=== PATIENT | male | born 1990 | race Caucasian/White ===

== ENCOUNTER 2018-03-30 02:55 | Inpatient (IN) | payer BC, OTHER ==
--- NOTE | 2018-03-30 04:00 | PDOC ---
History of Present Illness - General Chief Complaint: Chest Pain Stated Complaint: CHEST AND ABDOMINAL PAIN Time Seen by Provider: 03/30/18 03:53 History Source: Patient - History of Present Illness Initial Comments: 03/30/18 05:45 27 year old male with RUQ pain since 10 pm shortly after eating pork chop for dinner. patient that for the past 4 month patient has been patient following a high fatty Keto diet. denies N, V, diarrhea. 03/30/18 06:22 Past History - Past Medical History Allergies/Adverse Reactions: Allergies Allergy/AdvReac Type Severity Reaction Status Date / Time No Known Allergies Allergy Verified 03/30/18 04:29 Home Medications: Ambulatory Orders NK [No Known Home Medication] 03/30/18 Review of Systems - Review of Systems Able to Perform ROS?: Yes Is the patient limited Kazakh proficient: No Constitutional: Yes: Symptoms Reported ABD/GI: Yes: Abdominal cramping. No: Symptoms Reported, See HPI, Abdominal Distended, Abd. Pain w/ defecation, Blood Streaked Bowels, Constipated, Diarrhea , Difficulty Swallowing, Nausea, Poor Appetite, Poor Fluid Intake, Rectal Bleeding, Vomiting, Indigestion, Tarry Stools, Other : No: Symptoms Reported, See HPI, Burning, Dysuria, Discharge, Frequency, Flank Pain, Hematuria, Incontinence, Pain, Urgency, Testicular Mass, Testicular Swelling, Lesions, Testicular Pain, Other Musculoskeletal: No: Symptoms Reported, See HPI, Back Pain, Gout, Joint Pain, Joint Swelling, Muscle Pain, Muscle Weakness, Neck Pain, Joint Stiffness, Other Integumentary: No: Symptoms Reported, See HPI, Bruising, Change in Color, Change in Hair/Nails, Dryness, Erythema, Flushing, Lesions, Lumps, Pallor, Pruritus, Rash, Sweating, Other *Physical Exam - Vital Signs Last Vital Signs Temp Pulse Resp BP Pulse Ox 97.7 F 68 17 128/74 98 03/30/18 04:16 03/30/18 06:16 03/30/18 06:16 03/30/18 06:16 03/30/18 04:16 - Physical Exam General Appearance: Yes: Appropriately Dressed Gastrointestinal/Abdominal: positive: Normal Bowel Sounds, Tender (RUQ/ epigastric), Soft Musculoskeletal: positive: Normal Inspection Extremity: positive: Normal Capillary Refill, Normal Inspection, Normal Range of Motion Integumentary: positive: Normal Color, Dry, Warm Neurologic: positive: Fully Oriented, Alert, Normal Mood/Affect ED Treatment Course - LABORATORY CBC & Chemistry Diagram: 03/30/18 04:23 03/30/18 04:23 - ADDITIONAL ORDERS Additional order review: Laboratory Results 03/30/18 03/30/18 04:23 04:15 Sodium 137 Potassium 4.0 Chloride 106 Carbon Dioxide 26 Anion Gap 5 L BUN 18 Creatinine 1.0 Creat Clearance w eGFR > 60 Random Glucose 94 Calcium 8.9 Total Bilirubin 0.3 AST 23 ALT 39 Alkaline Phosphatase 105 Total Protein 8.2 Albumin 4.0 Lipase 261 Urine Color Ltyellow Urine Appearance Clear Urine pH 6.0 Ur Specific [place] 1.020 Urine Protein Negative Urine Glucose (UA) Negative Urine Ketones Trace H Urine Blood Negative Urine Nitrite Negative Urine Bilirubin Negative Urine Urobilinogen Negative Ur Leukocyte Esterase Negative 03/30/18 04:23 RBC 4.83 MCV 86.5 MCHC 34.5 RDW 12.8 MPV 7.9 Neutrophils % 70.4 Lymphocytes % 20.0 Monocytes % 6.1 Eosinophils % 2.7 Basophils % 0.8 - RADIOLOGY Radiology Studies Ordered: Category Date Time Status ABDOMEN US -LIMITED [US] Stat Ultrasound 03/30/18 04:17 Ordered - Medications Given in the ED: ED Medications Discontinued Medications Generic Name Dose Route Start Last Admin Trade Name Mireya PRN Reason Stop Dose Admin Al Hydroxide/Mg Hydroxide 30 ml 03/30/18 05:05 03/30/18 05:12 Mylanta Oral Suspension - PO 03/30/18 05:06 30 ml ONCE ONE Administration Famotidine/Sodium Chloride 20 mg in 50 mls @ 100 mls/hr 03/30/18 04:16 05:12 Pepcid 20 Mg Premixed Ivpb - IVPB 03/30/18 04:45 100 mls/hr ONCE ONE Administration Medical Decision Making - Medical Decision Making 03/30/18 06:41 A: RUQ pain P: CBC CMP UA Abdomen US: pending 03/30/18 06:42 *DC/Admit/Observation/Transfer Diagnosis at time of Disposition: Abdominal pain Qualifiers: Abdominal location: right upper quadrant Qualified Code(s): R10.11 - Right upper quadrant pain - Discharge Dispostion Condition at time of disposition: Fair - Referrals - Patient Instructions - Post Discharge Activity
[2018-03-30] MEDS ORDERED: FAMOTIDINE 20 MG/50 ML IVPB 20 MG/50 ML MG IVPB ONE ×2 (04:16→05:09)
[2018-03-30 04:33] LABS: BASO % 0.8 % (0-2.0); HEMATOCRIT 41.8 % (35.4-49); HEMOGLOBIN 14.4 GM/dL (11.7-16.9); WHITE BLOOD COUNT 8.1 K/mm3 (4.0-10.0)
[2018-03-30 04:35] LABS: EOS % 2.7 % (0-4.5); MCH 29.8 pg (25.7-33.7); MCHC 34.5 g/dl (32.0-35.9); MEAN CELL VOLUME 86.5 fl (80-96); MEAN PLT VOLUME 7.9 fl (7.5-11.1); MONO % 6.1 % (3.8-10.2); NEUT % 70.4 % (42.8-82.8); PLATELET COUNT 280 K/MM3 (134-434); RBC 4.83 M/mm3 (4.00-5.60); RDW 12.8 % (11.9-15.9)
[2018-03-30 04:41] LABS: URINE APPEARANCE CLEAR; URINE BILIRUBIN NEGATIVE (<2.0 mg/dL); URINE BLOOD NEGATIVE (NEGATIVE); URINE COLOR LTYELLOW; URINE GLUCOSE (UA) NEGATIVE (NEGATIVE); URINE KETONE TRACE (NEGATIVE); URINE LEUK ESTERASE NEGATIVE (NEGATIVE); URINE NITRITE NEGATIVE (NEGATIVE); URINE PROTEIN NEGATIVE (NEGATIVE); URINE UROBILINOGEN NEGATIVE mg/dL (0.2-1.0)
[2018-03-30 05:01] LABS: ALK PHOS 105 U/L (45-117); ANION GAP 5 (8-16); BILIRUBIN,TOTAL 0.3 mg/dL (0.2-1.0); BLOOD UREA NITROGEN 18 mg/dL (7-18); CALCIUM 8.9 mg/dL (8.5-10.1); CHLORIDE 106 mmol/L (98-107); CO2 26 mmol/L (21-32); GLUCOSE,RANDOM 94 mg/dL (74-106); SGOT/AST 23 U/L (15-37); SGPT/ALT 39 U/L (12-78); SODIUM 137 mmol/L (136-145); TOT PROT 8.2 g/dl (6.4-8.2)
[2018-03-30 05:03] LABS: LIPASE 261 U/L (73-393)
[2018-03-30] MEDS ORDERED: MAG HYDROX/AL HYDROX/SIMETH 30 ML UNIT-DOSE CUP PO ONE (05:05)
[2018-03-30] MEDS ORDERED: MAG HYDROX/AL HYDROX/SIMETH 30 ML UNIT-DOSE CUP ONE (05:09)
--- NOTE | 2018-03-30 06:52 | PDOC ---
*Physical Exam - Vital Signs Last Vital Signs Temp Pulse Resp BP Pulse Ox 97.7 F 68 17 128/74 98 03/30/18 04:16 03/30/18 06:16 03/30/18 06:16 03/30/18 06:16 03/30/18 04:16 ED Treatment Course - LABORATORY CBC & Chemistry Diagram: 03/30/18 04:23 03/30/18 04:23 - ADDITIONAL ORDERS Additional order review: Laboratory Results 03/30/18 03/30/18 04:23 04:15 Sodium 137 Potassium 4.0 Chloride 106 Carbon Dioxide 26 Anion Gap 5 L BUN 18 Creatinine 1.0 Creat Clearance w eGFR > 60 Random Glucose 94 Calcium 8.9 Total Bilirubin 0.3 AST 23 ALT 39 Alkaline Phosphatase 105 Total Protein 8.2 Albumin 4.0 Lipase 261 Urine Color Ltyellow Urine Appearance Clear Urine pH 6.0 Ur Specific [place] 1.020 Urine Protein Negative Urine Glucose (UA) Negative Urine Ketones Trace H Urine Blood Negative Urine Nitrite Negative Urine Bilirubin Negative Urine Urobilinogen Negative Ur Leukocyte Esterase Negative 03/30/18 04:23 RBC 4.83 MCV 86.5 MCHC 34.5 RDW 12.8 MPV 7.9 Neutrophils % 70.4 Lymphocytes % 20.0 Monocytes % 6.1 Eosinophils % 2.7 Basophils % 0.8 - Medications Given in the ED: ED Medications Discontinued Medications Generic Name Dose Route Start Last Admin Trade Name Freq PRN Reason Stop Dose Admin Al Hydroxide/Mg Hydroxide 30 ml 03/30/18 05:05 03/30/18 05:12 Mylanta Oral Suspension - PO 03/30/18 05:06 30 ml ONCE ONE Administration Famotidine/Sodium Chloride 20 mg in 50 mls @ 100 mls/hr 03/30/18 04:16 05:12 Pepcid 20 Mg Premixed Ivpb - IVPB 03/30/18 04:45 100 mls/hr ONCE ONE Administration Medical Decision Making - Medical Decision Making 03/30/18 06:50 Mr. Carson is a 27-year-old male who is otherwise healthy who presents emergency Department with complaints of abdominal pain since 10 pm shortly after eating pork chop for dinner. Pt on a high fat diet Denies fevers or chills Denies nausea or vomiting Abd mildly tender to palpation No involuntary guarding, no rebound RRR CTA Will do labs Will do US *DC/Admit/Observation/Transfer Diagnosis at time of Disposition: Abdominal pain Qualifiers: Abdominal location: right upper quadrant Qualified Code(s): R10.11 - Right upper quadrant pain - Discharge Dispostion Condition at time of disposition: Fair - Referrals - Patient Instructions - Post Discharge Activity
--- NOTE | 2018-03-30 07:47 | PDOC ---
*Physical Exam - Vital Signs Last Vital Signs Temp Pulse Resp BP Pulse Ox 98.1 F 70 17 110/46 98 03/30/18 07:37 03/30/18 07:37 03/30/18 07:37 03/30/18 07:37 03/30/18 07:37 - Physical Exam General Appearance: Yes: Appropriately Dressed. No: Apparent Distress HEENT: positive: Normal Voice Neck: positive: Supple Respiratory/Chest: negative: Respiratory Distress Integumentary: positive: Dry, Warm Neurologic: positive: Fully Oriented, Alert, Normal Mood/Affect ED Treatment Course - LABORATORY CBC & Chemistry Diagram: 03/30/18 13:10 03/30/18 13:10 - ADDITIONAL ORDERS Additional order review: Laboratory Results 03/30/18 03/30/18 04:23 04:15 Sodium 137 Potassium 4.0 Chloride 106 Carbon Dioxide 26 Anion Gap 5 L BUN 18 Creatinine 1.0 Creat Clearance w eGFR > 60 Random Glucose 94 Calcium 8.9 Total Bilirubin 0.3 AST 23 ALT 39 Alkaline Phosphatase 105 Total Protein 8.2 Albumin 4.0 Lipase 261 Urine Color Ltyellow Urine Appearance Clear Urine pH 6.0 Ur Specific [place] 1.020 Urine Protein Negative Urine Glucose (UA) Negative Urine Ketones Trace H Urine Blood Negative Urine Nitrite Negative Urine Bilirubin Negative Urine Urobilinogen Negative Ur Leukocyte Esterase Negative 03/30/18 04:23 RBC 4.83 MCV 86.5 MCHC 34.5 RDW 12.8 MPV 7.9 Neutrophils % 70.4 Lymphocytes % 20.0 Monocytes % 6.1 Eosinophils % 2.7 Basophils % 0.8 - Medications Given in the ED: ED Medications Discontinued Medications Generic Name Dose Route Start Last Admin Trade Name Dewayneq PRN Reason Stop Dose Admin Al Hydroxide/Mg Hydroxide 30 ml 03/30/18 05:05 03/30/18 05:12 Mylanta Oral Suspension - PO 03/30/18 05:06 30 ml ONCE ONE Administration Famotidine/Sodium Chloride 20 mg in 50 mls @ 100 mls/hr 03/30/18 04:16 05:12 Pepcid 20 Mg Premixed Ivpb - IVPB 03/30/18 04:45 100 mls/hr ONCE ONE Administration Medical Decision Making - Medical Decision Making 03/30/18 07:47 Received signout from NEO Bonilla at 7 AM Patient is a 27-year-old male currently on "fatty keto" diet, who presents with upper abdominal pain after eating pork chop. Patient found to be stable with tenderness to palpation to right upper quadrant and epigastrium as per prior team. Labs unremarkable. Right upper quadrant sono pending 03/30/18 11:00 Ultrasound read as cholelithiasis including stone to region of GB neck. + gallbladder sludge with gallbladder wall thickening and related extrahepatic bile duct measuring 6-7 mm. No evidence of pericholecystic fluid and no sonographic Vale sign. Upon re-evaluation, patient continues to complain of some upper abdominal pains though since improved. States he developed upper abdominal pain for the first time last night shortly after eating pork chops. He states he has never had this pain before. No n/v currently and no fever in ED. Will continue to manage pain and consult with GI and surgery at this time 03/30/18 11:[address] Lynn of surgery, states she will be down to evaluate patient 03/30/18 13:57 Rpt labs unremarkable. As per d/w Dr Lynn, pt to be admitted to her service *DC/Admit/Observation/Transfer Diagnosis at time of Disposition: Biliary colic Gallstone Qualifiers: Cholecystitis presence: without cholecystitis Biliary obstruction: with biliary obstruction Qualified Code(s): K80.21 - Calculus of gallbladder without cholecystitis with obstruction - Discharge Dispostion Condition at time of disposition: Fair Decision to Admit order: Yes - Referrals - Patient Instructions - Post Discharge Activity
[2018-03-30] MEDS ORDERED: morphine CARPU-JECT 4 MG/1 ML DISP.SYRIN IVPUSH ONE (11:03)
[2018-03-30] MEDS ORDERED: SODIUM CHLORIDE 1,000 ML IV STA (11:04)
[2018-03-30 11:50] LABS: INR 1.09 (0.82-1.09); PROTHROMBIN TIME (PATIENT) 12.3 SEC (9.7-13.0)
[2018-03-30] MEDS ORDERED: morphine CARPU-JECT 2 MG/1 ML DISP.SYRIN ONE (11:51)
--- NOTE | 2018-03-30 12:53 | HP ---
Admitting History and Physical - Admission Chief Complaint: epigastric pain History of Present Illness: 27yo obese M with h/o heartburn and s/p appendectomy at 15 presented to ER overnight with epigastric and RUQ pain which woke him from restless sleep about 2:30 am. He tried going to the bathroom and had normal BM, but the pain persisted. No F/C, no N/V, never had quite this pain before, but he does admit to occasional RUQ discomfort over the last year. He had previously discussed those pains with a doctor as well as heartburn, and been Rx omeprazole, which he took for about a week, but at the time it was thought to represent rib discomfort. The patient currently has no PMD. He has been NPO since 9pm last night when he had a pork chop. He started a keto-diet high in fats for weight loss in December. In the ER, he has had IV fluids, pepcid and maalox, and one dose of morphine, and his pain is better now, just some discomfort. He is afebrile, and all labs are normal, including wbc, LFTs and lipase. US showed gallstones and sludge, with ~1.5cm stone in neck, no pathologic gb distention but somewhat thickened wall, no pericholecystic fluid, and dilated proximal extrahepatic bile duct at 6 -7mm. GI has been called also and MRCP is pending. He is seen in the holding area with kimberli at bedside. No significant pain now, no nausea. 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 Home Medications - Allergies Allergies/Adverse Reactions: Allergies Allergy/AdvReac Type Severity Reaction Status Date / Time No Known Allergies Allergy Verified 03/30/18 04:29 - Home Medications Home Medications: Ambulatory Orders NK [No Known Home Medication] 03/30/18 Family Disease History - Family Disease History Family Disease History: Other: Mother (had gb out) Review of Systems - Review of Systems Constitutional: denies: Chills, Fever, Loss of Appetite Eyes: denies: Blurred Vision, Recent Change in Vision HENT: denies: Difficult Swallowing, Nasal Congestion, Throat Pain Neck: denies: Swollen Glands, Tenderness Cardiovascular: denies: Chest Pain, Palpitations Respiratory: denies: Cough, SOB Gastrointestinal: reports: Abdominal Pain (with hpi), Indigestion (heartburn sometimes). denies: Constipation, Diarrhea, Nausea, Vomiting Genitourinary: denies: Burning, Dysuria Musculoskeletal: reports: Back Pain (occasionally). denies: Joint Pain, Muscle Pain Integumentary: denies: Change in Color, Rash Neurological: denies: Dizziness, Headache Physical Examination Vital Signs: Vital Signs Temperature 97.2 F L 03/30/18 11:48 Pulse Rate 92 H 03/30/18 11:48 Respiratory Rate 18 03/30/18 11:48 Blood Pressure 115/70 03/30/18 11:48 O2 Sat by Pulse Oximetry (%) 97 03/30/18 11:48 Constitutional: Yes: No Distress, Calm, Obese Eyes: Yes: Conjunctiva Clear, EOM Intact. No: Sclera Icterus HENT: Yes: Atraumatic, Normocephalic Neck: Yes: Supple, Trachea Midline Cardiovascular: Yes: Regular Rate and Rhythm. No: Murmur Respiratory: Yes: Regular, CTA Bilaterally Gastrointestinal: Yes: Normal Bowel Sounds, Soft, Abdomen, Obese, Tenderness ( mild to deep palpation only RUQ, no Vale's). No: Distention, Tenderness, Epigastrium, Tenderness, Rebound, Other (healed RLQ scar) ...Rectal Exam: Yes: Deferred Renal/: No: CVA Tenderness - Left, CVA Tenderness - Right Musculoskeletal: No: Joint Stiffness, Joint Swelling Extremities: No: Cool, Cyanosis Edema: No Peripheral Pulses WNL: Yes Integumentary: No: Jaundice, Rash Neurological: Yes: Alert, Oriented Psychiatric: Yes: Alert, Oriented Labs: CBC, BMP 03/30/18 04:23 03/30/18 04:23 CMP Sodium 137 mmol/L (136-145) 03/30/18 04:23 Potassium 4.0 mmol/L (3.5-5.1) 03/30/18 04:23 Chloride 106 mmol/L (98-107) 03/30/18 04:23 Carbon Dioxide 26 mmol/L (21-32) 03/30/18 04:23 Anion Gap 5 (8-16) L 03/30/18 04:23 BUN 18 mg/dL (7-18) 03/30/18 04:23 Creatinine 1.0 mg/dL (0.7-1.3) 03/30/18 04:23 Creat Clearance w eGFR > 60 (>60) 03/30/18 04:23 Random Glucose 94 mg/dL (74-106) 03/30/18 04:23 Calcium 8.9 mg/dL (8.5-10.1) 03/30/18 04:23 Total Bilirubin 0.3 mg/dL (0.2-1.0) 03/30/18 04:23 AST 23 U/L (15-37) 03/30/18 04:23 ALT 39 U/L (12-78) 03/30/18 04:23 Alkaline Phosphatase 105 U/L (45-117) 03/30/18 04:23 Total Protein 8.2 g/dl (6.4-8.2) 03/30/18 04:23 Albumin 4.0 g/dl (3.4-5.0) 03/30/18 04:23 Lipase 261 U/L (73-393) 03/30/18 04:23 INR, PTT INR 1.09 (0.82-1.09) 03/30/18 11:19 Imaging - Results Ultrasound: Report Reviewed, Image Reviewed MRI: Pending Problem List - Problems (1) Calculus of gallbladder w/o mention of cholecystitis or obstruction Assessment/Plan: admit to surgical service NPO except meds pain meds prn trend labs - repeat shows no increase in wbc, LFTs or lipase MRCP pending GI for ERCP if indicated, Dr. eJnsen aware GI/DVT prophylaxis anticipate pt will spend 2 midnights in hospital pending MRCP results, if ERCP not indicated and labs stable in am, will plan for lap poss open cholecystectomy tomorrow Discussed with patient risks, benefits and alternatives of laparoscopic possible open cholecystectomy, including but not limited to bleeding, infection , injury to adjacent structures, bile leak or ductal injury, intraabdominal abscess, hernia, need for further procedures; alternatives include delayed or no surgery - risks of this include recurrence of biliary colic, cholecystitis, cholangitis, pancreatitis. Patient desires to proceed with operation - will take to OR for above pending above. Informed consent signed for same. Code(s): K80.20 - CALCULUS OF GALLBLADDER W/O CHOLECYSTITIS W/O OBSTRUCTION Qualifiers: Cholecystitis presence: without cholecystitis Biliary obstruction: without biliary obstruction Qualified Code(s): K80.20 - Calculus of gallbladder without cholecystitis without obstruction (2) Epigastric abdominal pain Code(s): R10.13 - EPIGASTRIC PAIN (3) GERD without esophagitis Code(s): K21.9 - GASTRO-ESOPHAGEAL REFLUX DISEASE WITHOUT ESOPHAGITIS (4) Obesity (BMI 35.0-39.9 without comorbidity) Code(s): E66.9 - OBESITY, UNSPECIFIED
[2018-03-30 13:18] LABS: BASO % 0.7 % (0-2.0); HEMATOCRIT 40.3 % (35.4-49); HEMOGLOBIN 13.9 GM/dL (11.7-16.9); LYMPH % 18.2 % (8-40); MCH 29.9 pg (25.7-33.7); MCHC 34.5 g/dl (32.0-35.9); MEAN CELL VOLUME 86.7 fl (80-96); MEAN PLT VOLUME 7.5 fl (7.5-11.1); MONO % 6.2 % (3.8-10.2); NEUT % 72.9 % (42.8-82.8); PLATELET COUNT 246 K/MM3 (134-434); RBC 4.65 M/mm3 (4.00-5.60); RDW 12.8 % (11.9-15.9)
[2018-03-30 13:41] LABS: ALBUMIN 3.7 g/dl (3.4-5.0); ALK PHOS 94 U/L (45-117); ANION GAP 7 (8-16); BILIRUBIN,TOTAL 0.6 mg/dL (0.2-1.0); BLOOD UREA NITROGEN 14 mg/dL (7-18); CALCIUM 8.6 mg/dL (8.5-10.1); CHLORIDE 105 mmol/L (98-107); CO2 27 mmol/L (21-32); CREATININE 0.9 mg/dL (0.7-1.3); GLUCOSE,RANDOM 84 mg/dL (74-106); LIPASE 158 U/L (73-393); SGOT/AST 22 U/L (15-37); SGPT/ALT 36 U/L (12-78); SODIUM 139 mmol/L (136-145); TOT PROT 7.7 g/dl (6.4-8.2)
[2018-03-30] MEDS ORDERED: ONDANSETRON 4 MG/2 ML VIAL IVPUSH PRN (13:50)
[2018-03-30] MEDS ORDERED: IBUPROFEN 800 MG/8 ML IJ IVPB PRN (13:58)
[2018-03-30] MEDS ORDERED: ACETAMINOPHEN 325 MG TABLET (FP) PO PRN (14:01)
[2018-03-30] MEDS: SODIUM CHLORIDE 1,000 ML IV SCH (14:10)
--- NOTE | 2018-03-30 14:16 | CONSULT ---
Consult - text type - Consultation Consultation Note: admitted to my service - see H&P for details
[2018-03-30] MEDS ORDERED: CEFOXITIN SODIUM 2 GM in DEXTROSE 5%-WATER - 100 ML IVPB SCH (20:00)
[2018-03-30] MEDS: CEFOXITIN SODIUM 2 GM in DEXTROSE 5%-WATER - 100 ML IVPB SCH (21:20)
[2018-03-30 23:58] VITALS: BMI 36.1
[2018-03-31] MEDS: SODIUM CHLORIDE 1,000 ML IV SCH ×4 (01:49→18:01)
[2018-03-31] MEDS: CEFOXITIN SODIUM 2 GM in DEXTROSE 5%-WATER - 100 ML IVPB SCH ×3 (05:00→18:00)
[2018-03-31 08:11] LABS: BASO % 0.7 % (0-2.0); HEMATOCRIT 40.5 % (35.4-49); HEMOGLOBIN 14.1 GM/dL (11.7-16.9); LYMPH % 32.7 % (8-40); MCHC 34.8 g/dl (32.0-35.9); MEAN CELL VOLUME 86.3 fl (80-96); MEAN PLT VOLUME 7.7 fl (7.5-11.1); MONO % 7.9 % (3.8-10.2); NEUT % 55.7 % (42.8-82.8); PLATELET COUNT 252 K/MM3 (134-434); RDW 13.3 % (11.9-15.9); WHITE BLOOD COUNT 5.7 K/mm3 (4.0-10.0)
[2018-03-31 08:50] LABS: ALBUMIN 3.6 g/dl (3.4-5.0); ANION GAP 7 (8-16); BLOOD UREA NITROGEN 9 mg/dL (7-18); CALCIUM 8.5 mg/dL (8.5-10.1); CHLORIDE 106 mmol/L (98-107); CO2 25 mmol/L (21-32); GLUCOSE,RANDOM 77 mg/dL (74-106); SODIUM 138 mmol/L (136-145)
[2018-03-31 08:53] LABS: ALK PHOS 92 U/L (45-117); BILIRUBIN,TOTAL 0.9 mg/dL (0.2-1.0); CREATININE 0.9 mg/dL (0.7-1.3); SGOT/AST 18 U/L (15-37); SGPT/ALT 30 U/L (12-78); TOT PROT 7.3 g/dl (6.4-8.2)
[2018-03-31 08:58] LABS: LIPASE 205 U/L (73-393)
[2018-03-31] MEDS ORDERED: CHONDROITIN SU A/HYALUR SOD 1 KIT ONE (10:37)
--- NOTE | 2018-03-31 11:18 | PN ---
Progress Note (short form) - Note Progress Note: Chart reviewed. Events noted. As per initial intake:
--- NOTE | 2018-03-31 11:22 | CON.GI ---
Consult Consult Specialty:: GI Reason for Consultation:: right upper quadrant abdominal pain, chronic - History of Present Illness History of Present Illness: chart reviewed. Events noted. a 27-year-old male, healthy with right upper quadrant abdominal pain that woke outpatient in nthe middle of the night. The patient has been having right upper quadrant discomfort, frequent postprandial for the last few months. No nausea, vomiting, jaundice, low-grade fever, or chills. No change in bowel habits. No unintentional weight loss. Has been on weight loss diet. Denies herbal supplements, chronic NSAIDs, alcohol. Denies history of peptic ulcer disease, gastritis, esophagitis. Denies having upper endoscopy in the past. ultrasound of the liver revealed cholelithiasis with CBD of 6-7 mm without obvious defects. MRCP revealed a calculus cholecystitis without CBD abnormalities. Normal liver chemistries and lipase. 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 Home Medications - Allergies Allergies/Adverse Reactions: Allergies Allergy/AdvReac Type Severity Reaction Status Date / Time No Known Allergies Allergy Verified 03/30/18 04:29 - Home Medications Home Medications: Ambulatory Orders NK [No Known Home Medication] 03/30/18 Family Disease History - Family Disease History Family Disease History: Other: Mother (had gb out) Review of Systems Findings/Remarks: As per H&P and HPI Physical Exam-GI Vital Signs: Vital Signs Temperature 97.9 F 03/31/18 08:00 Pulse Rate 66 03/31/18 08:00 Respiratory Rate 17 03/31/18 08:00 Blood Pressure 117/59 03/31/18 08:00 O2 Sat by Pulse Oximetry (%) 99 03/30/18 23:43 Constitutional: Yes: Well Nourished, No Distress, Calm Eyes: Yes: Conjunctiva Clear HENT: Yes: Atraumatic Neck: Yes: Supple Cardiovascular: Yes: Regular Rate and Rhythm Respiratory: Yes: Regular Gastrointestinal Inspection: No: Distention ...Auscultate: Yes: Normoactive Bowel Sounds ...Palpate: Yes: Tenderness ( Right upper quadrant, positive Vale's. Minimal discomfort) Neurological: Yes: Alert, Oriented Labs: CBC, BMP 03/31/18 07:10 03/31/18 07:10 INR, PTT INR 1.09 (0.82-1.09) 03/30/18 11:19 Laboratory Last Values WBC 5.7 K/mm3 (4.0-10.0) 03/31/18 07:10 RBC 4.70 M/mm3 (4.00-5.60) 03/31/18 07:10 Hgb 14.1 GM/dL (11.7-16.9) 03/31/18 07:10 Hct 40.5 % (35.4-49) 03/31/18 07:10 MCV 86.3 fl (80-96) 03/31/18 07:10 MCH 30.0 pg (25.7-33.7) 03/31/18 07:10 MCHC 34.8 g/dl (32.0-35.9) 03/31/18 07:10 RDW 13.3 % (11.9-15.9) 03/31/18 07:10 Plt Count 252 K/MM3 (134-434) 03/31/18 07:10 MPV 7.7 fl (7.5-11.1) 03/31/18 07:10 Neutrophils % 55.7 % (42.8-82.8) D 03/31/18 07:10 Lymphocytes % 32.7 % (8-40) D 03/31/18 07:10 Monocytes % 7.9 % (3.8-10.2) 03/31/18 07:10 Eosinophils % 3.0 % (0-4.5) 03/31/18 07:10 Basophils % 0.7 % (0-2.0) 03/31/18 07:10 Nucleated RBC % 0 % (0-0) 03/31/18 07:10 PT with INR 12.30 SEC (9.7-13.0) 03/30/18 11:19 INR 1.09 (0.82-1.09) 03/30/18 11:19 Sodium 138 mmol/L (136-145) 03/31/18 07:10 Potassium 4.0 mmol/L (3.5-5.1) 03/31/18 07:10 Chloride 106 mmol/L (98-107) 03/31/18 07:10 Carbon Dioxide 25 mmol/L (21-32) 03/31/18 07:10 Anion Gap 7 (8-16) L 03/31/18 07:10 BUN 9 mg/dL (7-18) D 03/31/18 07:10 Creatinine 0.9 mg/dL (0.7-1.3) 03/31/18 07:10 Creat Clearance w eGFR > 60 (>60) 03/31/18 07:10 Random Glucose 77 mg/dL (74-106) 03/31/18 07:10 Calcium 8.5 mg/dL (8.5-10.1) 03/31/18 07:10 Total Bilirubin 0.9 mg/dL (0.2-1.0) D 03/31/18 07:10 AST 18 U/L (15-37) 03/31/18 07:10 ALT 30 U/L (12-78) 03/31/18 07:10 Alkaline Phosphatase 92 U/L (45-117) 03/31/18 07:10 Total Protein 7.3 g/dl (6.4-8.2) 03/31/18 07:10 Albumin 3.6 g/dl (3.4-5.0) 03/31/18 07:10 Lipase 205 U/L (73-393) 03/31/18 07:10 Urine Color Ltyellow 03/30/18 04:15 Urine Appearance Clear 03/30/18 04:15 Urine pH 6.0 (5.0-8.0) 03/30/18 04:15 Ur Specific [place] 1.020 (1.001-1.035) 03/30/18 04:15 Urine Protein Negative (NEGATIVE) 03/30/18 04:15 Urine Glucose (UA) Negative (NEGATIVE) 03/30/18 04:15 Urine Ketones Trace (NEGATIVE) H 03/30/18 04:15 Urine Blood Negative (NEGATIVE) 03/30/18 04:15 Urine Nitrite Negative (NEGATIVE) 03/30/18 04:15 Urine Bilirubin Negative (<2.0 mg/dL) 03/30/18 04:15 Urine Urobilinogen Negative mg/dL (0.2-1.0) 03/30/18 04:15 Ur Leukocyte Esterase Negative (NEGATIVE) 03/30/18 04:15 Blood Type A POSITIVE 03/30/18 13:10 Antibody Screen Negative 03/30/18 11:19 Imaging - Results Ultrasound: Report Reviewed MRI: Report Reviewed Problem List - Problems (1) Biliary colic Code(s): K80.50 - CALCULUS OF BILE DUCT W/O CHOLANGITIS OR CHOLECYST W/O OBST Assessment/Plan a 27-year-old male with what appears to be Recurrent, biliary colic, without obvious CBD, or pancreatic involvement. Surgery is on the case and cholecystectomy is planned for this afternoon. GERD is being addressed. May need upper endoscopy as an outpatient if symptoms of GERD and abdominal pain continue. Discussed with the patient in detail. He verbalizes understanding.
[2018-03-31] MEDS ORDERED: PT OWN MED DRAWER 7, Y5N ONE ×3 (11:54→17:55)
--- NOTE | 2018-03-31 12:58 | CON.ID ---
Consult Consult Specialty:: infectious diseases Referred by:: Reason for Consultation:: cholelythisisas,abd pain - History of Present Illness Chief Complaint: abd pain History of Present Illness: 27-year-old male, with no pmhx admitted to the hospital right upper quadrant abdominal pain that woke outpatient in [facility] middle of the night. 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 No nausea, vomiting, jaundice, low-grade fever, or chills. No change in bowel habits. patient has had not any medical issues uptill now ultrasound of the liver revealed cholelithiasis with CBD of 6-7 mm without obvious defects. MRCP revealed a calculus cholecystitis without CBD abnormalities. Normal liver chemistries and lipase. 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 denies: Chills, Fever Eyes: reports: No Symptoms HENT: reports: No Symptoms Neck: reports: No Symptoms Cardiovascular: reports: No Symptoms Respiratory: reports: No Symptoms Gastrointestinal: reports: Abdominal Pain Genitourinary: reports: No Symptoms Breasts: reports: No Symptoms Reported Musculoskeletal: reports: No Symptoms Integumentary: reports: No Symptoms Neurological: reports: No Symptoms Endocrine: reports: No Symptoms Hematology/Lymphatic: reports: No Symptoms Psychiatric: reports: No Symptoms Physical Exam Vital Signs: Vital Signs Temperature 97.9 F 03/31/18 08:00 Pulse Rate 66 03/31/18 08:00 Respiratory Rate 17 03/31/18 08:00 Blood Pressure 117/59 03/31/18 08:00 O2 Sat by Pulse Oximetry (%) 99 03/30/18 23:43 Constitutional: Yes: Well Nourished, No Distress, Calm Eyes: Yes: Conjunctiva Clear HENT: Yes: Atraumatic, Normocephalic Neck: Yes: Supple, Trachea Midline Cardiovascular: Yes: Regular Rate and Rhythm Respiratory: Yes: Regular, CTA Bilaterally Gastrointestinal: Yes: Soft, Hypoactive Bowel Sounds. No: Tenderness, Rebound Musculoskeletal: Yes: WNL Extremities: Yes: WNL Neurological: Yes: Alert, Oriented Psychiatric: Yes: Alert, Oriented Labs: CBC, BMP 03/31/18 07:10 03/31/18 07:10 Imaging - Results Ultrasound: Report Reviewed, Image Reviewed MRI: Report Reviewed, Image Reviewed Assessment/Plan Problem List - Problems (1) Calculus of gallbladder w/o mention of cholecystitis or obstruction Code(s): K80.20 - CALCULUS OF GALLBLADDER W/O CHOLECYSTITIS W/O OBSTRUCTION Qualifiers: Cholecystitis presence: without cholecystitis Biliary obstruction: without biliary obstruction Qualified Code(s): K80.20 - Calculus of gallbladder without cholecystitis without obstruction (2) Epigastric abdominal pain Code(s): R10.13 - EPIGASTRIC PAIN (3) GERD without esophagitis Code(s): K21.9 - GASTRO-ESOPHAGEAL REFLUX DISEASE WITHOUT ESOPHAGITIS (4) Obesity (BMI 35.0-39.9 without comorbidity) Code(s): E66.9 - OBESITY, UNSPECIFIED plan await for the final plan from surgical team continue abx till then gi note noted patient doing well
[2018-03-31] MEDS ORDERED: ePHEDrine SULFATE 50 MG/1 ML AMPULE ONE (13:28)
[2018-03-31] MEDS ORDERED: fentaNYL CITRATE 250 MCG/5 ML VIAL ONE (13:29)
[2018-03-31] MEDS ORDERED: SUCCINYLCHOLINE CHLORIDE 200 MG/10 ML VIAL ONE (13:29)
[2018-03-31] MEDS ORDERED: MIDAZOLAM HCL 2 MG/2 ML SINGLE DOSE VIAL ONE (13:30)
[2018-03-31] MEDS ORDERED: PROPOFOL 20 ML ONE ×2 (13:30)
[2018-03-31] MEDS ORDERED: BUPIVACAINE HCL/PF 0.5% (5MG/ML) 10 ML VIAL ONE (14:35)
[2018-03-31] MEDS ORDERED: NEOSTIGMINE METHYLSULFATE 0.5 MG/ML - 10 ML MDV ONE (15:22)
[2018-03-31] MEDS ORDERED: BUPIVACAINE HCL/PF 0.5% (5MG/ML) 10 ML VIAL IJ ONE ×2 (15:35)
[2018-03-31] MEDS ORDERED: BENZOIN/ALOE VERA/STORAX/TOLU 58 ML BOTTLE TP ONE (15:42)
--- NOTE | 2018-03-31 16:11 | OP ---
Operative Note - Note: Operative Date: 03/31/18 Pre-Operative Diagnosis: acute cholecystitis Operation: laparoscopic cholecystectomy Findings: mildly inflamed gallbladder with large stones inside; critical view obtained Post-Operative Diagnosis: Same as Pre-op Surgeon: Siddharth Lynn Rayon Coner: Cr Ortega (mamta/Deidra Hearn MS3) Anesthesiologist/CLINICAL CYTOPATHOLOGIST: Rd Kothari (mamta/Zbigniew) Specimens Removed: gallbladder to pathology Estimated Blood Loss (mls): 5 Fluid Volume Replaced (mls): 800 (crystalloid) Operative Report Dictated: Yes
[2018-03-31] MEDS ORDERED: oxyCODONE HCL 5 MG TABLET PO PRN ×2 (16:16→16:25)
[2018-03-31] MEDS ORDERED: SODIUM CHLORIDE 1,000 ML IV SCH (16:20)
[2018-03-31] MEDS ORDERED: ONDANSETRON 4 MG/2 ML VIAL IVPUSH PRN (16:25)
--- NOTE | 2018-03-31 17:57 | OP ---
DATE OF OPERATION: 03/31/2018 PREOPERATIVE DIAGNOSIS: Acute cholecystitis. POSTOPERATIVE DIAGNOSIS: Acute cholecystitis. PROCEDURE PERFORMED: Laparoscopic cholecystectomy. SURGEON: Siddharth Lynn M.D. DICE TABLE PERSON: Cr Ortega M.D., also medical student Deidra Hearn, MS3. ANESTHESIA: General endotracheal and local (20 mL of 0.5% Marcaine). ESTIMATED BLOOD LOSS: 5 mL. FLUIDS: 800 mL crystalloid. SPECIMEN: Gallbladder to pathology. FINDINGS: Mildly inflamed gallbladder with large stones inside, the critical view was obtained. DISPOSITION: Stable and extubated to PACU. INDICATION FOR PROCEDURE: The patient is a 27-year-old obese male with history of an appendectomy and occasional heartburn symptoms who was admitted yesterday through the emergency room with epigastric and right upper quadrant pain which had woken him from sleep. He described symptoms consistent with possible previous biliary colic, but they had not been associated with mealtimes. He had normal labs including white count, LFTs, and lipase. Ultrasound showed gallstones and sludge with approximately 1.5 cm gallstone in the neck of the gallbladder and a slightly thickened wall, but no pericholecystic fluid, and a somewhat dilated proximal extrahepatic bile duct. MRCP was done showing no significant biliary ductal dilation with a CBD of 5 to 6 mm, multiple stones in the gallbladder including one at 2.3 cm, and some pericholecystic fluid consistent with probable cholecystitis. His labs remained stable. He was started on antibiotics and IV fluids and risks, benefits, and alternatives of laparoscopic, possible open cholecystectomy including but not limited to bleeding, infection, injury to adjacent structures, bile leak or ductal injury, intraabdominal abscess, hernia, need for further procedures were discussed with the patient and desires to proceed with the operation, and signed informed consent for the same. He is now brought to the OR for this operation. OPERATIVE TECHNIQUE: The patient's abdominal hair was clipped in the holding area. The patient was then brought to the operating room and laid supine on the operating table. Sequential compression devices were applied to bilateral lower extremities, and as he had had 3 doses already of treatment antibiotic on the floor, no additional antibiotics were given immediately prior to the procedure. After induction and intubation by anesthesia, the patient's abdomen was prepped and draped in sterile fashion. A small supraumbilical midline incision was made with a scalpel and carried into subcutaneous tissues with electrocautery until the abdominal wall fascia was identified, scored and elevated with Tanvi clamps. The peritoneum was entered bluntly with the tip of a clamp, and a fingertip was inserted to ensure entry into the abdominal cavity and the absence of any underlying adhesions. A stay suture of 0 Vicryl was placed in [id number] fashion in the fascia for later closure, and the Jorge trocar introduced directly into the abdominal cavity and secured in place with the balloon. The abdomen was insufflated with carbon dioxide. The patient was placed in reverse Trendelenburg position with the right side planed slightly upward, and the 5-mm laparoscope inserted to inspect the abdominal cavity. The gallbladder was not immediately visible. An additional 5-mm port was placed under direct vision in the subxiphoid area, through which a grasper was used to sweep the omentum inferiorly, revealing the gallbladder under the liver edge. It was not markedly dilated, but at least 1 or 2 large stones were palpable within it. Two additional 5-mm ports were placed under direct vision in the right lateral and right upper quadrant, the lateral port being used for a grasper to grasp the fundus of the gallbladder and elevate it over the liver edge. The medial right upper quadrant port was used as an operative port, with a grasper used to grasp the infundibulum of the gallbladder and retract it laterally. A [place] dissector was then used to begin dissecting the peritoneum away from the base of the gallbladder, ultimately revealing the cystic duct, which was isolated very clearly as the only structure directly entering the gallbladder from both medial and lateral sides, that is, in the critical view. It was then clipped, 2 proximally and 1 distally, and divided with endoscissors. The cystic artery was also visible just medial to this and was again isolated carefully with the Maryland dissector, at which point it was also clipped, 2 proximally and 1 distally, and divided with endoscissors. The stump was noted to pulsate. The hook cautery was then used to continue taking the gallbladder off the liver bed, which was accomplished without entry into the bag or any spillage. Once it had been completely , the camera was moved to the subxiphoid port, and the gallbladder placed in the Endocatch bag through the umbilical port site and retrieved out that location. It was passed off the field as a pathology specimen , and at least 1 large stone was palpable within the bag, with multiple other smaller stones also noted. The Jorge trocar and pneumoperitoneum were then reestablished briefly, the camera reinserted into the umbilical port site, and the operative field inspected for hemostasis, which was noted to be complete. No irrigation or suction were undertaken. The patient was returned to neutral position. The 5-mm ports were removed under direct vision, and the camera and Jorge trocar were also removed, and the abdomen exsufflated of carbon dioxide. The stay suture at the umbilical site was tied to close the fascia there. Hemostasis was achieved at the port sites with electrocautery as needed. Local anesthetic was infiltrated into all 4 port sites for a total of 20 mL, and skin was closed with 4-0 Vicryl subcuticular sutures including a running at the umbilical site. Benzoin and Steri-Strips were then applied to each incision, and dressings of gauze and Tegaderm were applied over these. Counts were correct at the end of the procedure. The patient was then awakened, extubated by anesthesia, and was able to move himself back onto the stretcher, and he was then taken to the recovery room in stable condition having tolerated the procedure well. Dr. Ortega was an essential billing and accounting staff assistant throughout the procedure from entry into the abdominal cavity to retraction of the gallbladder and manipulation of the camera , as well as assistance with retrieving the gallbladder. Siddharth Lynn M.D. [id number] MTDD
[2018-03-31] MEDS: ACETAMINOPHEN 325 MG TABLET (FP) PO SCH (18:00)
[2018-03-31] MEDS ORDERED: CEFOXITIN SODIUM 1 GM in DEXTROSE 5%-WATER - 100 ML IVPB SCH (18:00)
[2018-03-31] MEDS ORDERED: ACETAMINOPHEN 325 MG TABLET (FP) PO SCH (18:00)
[2018-03-31] MEDS ORDERED: CEFOXITIN SODIUM 2 GM in DEXTROSE 5%-WATER - 100 ML IVPB SCH (18:00)
[2018-03-31] MEDS ORDERED: IBUPROFEN 600 MG TABLET (FP) PO SCH (21:00)
[2018-03-31] MEDS: IBUPROFEN 600 MG TABLET (FP) PO SCH (21:13)
[2018-03-31] MEDS: RANITIDINE HCL 150 MG TABLET (FP) PO SCH (21:14)
[2018-03-31] MEDS ORDERED: RANITIDINE HCL 150 MG TABLET (FP) PO SCH (22:00)
[2018-04-01] MEDS: ACETAMINOPHEN 325 MG TABLET (FP) PO SCH ×3 (00:06→11:58)
[2018-04-01] MEDS: SODIUM CHLORIDE 1,000 ML IV SCH (00:07)
[2018-04-01] MEDS: CEFOXITIN SODIUM 2 GM in DEXTROSE 5%-WATER - 100 ML IVPB SCH ×2 (02:31→09:55)
[2018-04-01] MEDS: IBUPROFEN 600 MG TABLET (FP) PO SCH ×2 (02:58→09:54)
[2018-04-01] MEDS ORDERED: PT OWN MED DRAWER 7, Y5N ONE (09:49)
[2018-04-01] MEDS: RANITIDINE HCL 150 MG TABLET (FP) PO SCH (09:54)
--- NOTE | 2018-04-01 10:46 | DS ---
Physical Examination Vital Signs: Vital Signs Temperature 98.5 F 04/01/18 06:00 Pulse Rate 63 04/01/18 06:00 Respiratory Rate 18 04/01/18 06:00 Blood Pressure 102/58 04/01/18 06:00 O2 Sat by Pulse Oximetry (%) 98 03/31/18 19:59 Constitutional: Yes: Well Nourished, No Distress, Calm Eyes: Yes: Conjunctiva Clear, EOM Intact HENT: Yes: Atraumatic, Normocephalic Cardiovascular: Yes: Regular Rate and Rhythm. No: Murmur Respiratory: Yes: Regular, CTA Bilaterally Gastrointestinal: Yes: Soft, Abdomen, Obese Extremities: No: Cool, Cyanosis Integumentary: Yes: Incision (x4 dressed). No: Jaundice, Rash Wound/Incision: Yes: Steri Strips (under dressings), Dressing Dry and Intact. No: Dressing Removed Neurological: Yes: Alert, Oriented. No: Unsteady Gait Labs: no new labs Discharge Summary Reason For Visit: BILIARY COLIC, acute cholecystitis Current Active Problems Biliary colic (Acute) Calculus of gallbladder with acute cholecystitis without obstruction (Acute) Epigastric abdominal pain (Acute) GERD without esophagitis (Acute) Obesity (BMI 35.0-39.9 without comorbidity) (Acute) Procedures: Principal: laparoscopic cholecystectomy Hospital Course: 27yo obese M with h/o GERD symptoms presented with epigastric and RUQ pain without nausea or vomiting which woke him from sleep. He was afebrile with normal labs in ER, and US showed gallstones with mild wall thickening but no pericholecystic fluid and mildly dilated proximal extrahepatic duct. MRCP was done showing no CBD stones, at least one very large gallstone, and no gross ductal dilation, but pericholecystic fluid was present, suggesting cholecystitis. He was taken for uneventful laparoscopic cholecystectomy, and postoperatively has done well. He tolerated diet, has ambulated, voided, and pain is controlled with po Tylenol. He is discharged home to f/ in 2 weeks and referred to a PMD to establish primary care. Condition: Good - Instructions Diet, Activity, Other Instructions: Postoperative instructions: You had a laparoscopic cholecystectomy on 03/31/[address] Siddharth Lynn of [facility]. Activity: Resume your usual activities gradually, but no heavy exertion or lifting more than 10-15 pounds for 1 month. Remove dressings 48 hours after surgery; sticky tapes underneath will fall off by themselves. You may shower daily starting then, just pat the incision areas dry. No bath or swimming until skin incisions have healed. Eat lightly at first, but advance to your usual diet as tolerated. Pain: For pain, you may use and alternate 1-2 tabs Tylenol (acetaminophen) and/ or ibuprofen (200-600mg) every 6 hours each as needed; this means that you can take one OR the other at 3-hour intervals. If you are prescribed a Tylenol/ narcotic combination for severe pain, use it instead of plain Tylenol as needed and switch back when your pain starts decreasing. Do not take more than 4000mg of acetaminophen in a day. Take medications as prescribed or indicated on the labeling. Follow-up: Call Dr. Lynn's office at [phone] to make your postop appointment (Thursday ~2 weeks after surgery). Clinic is held in the Diagnostic Center on the first floor of [facility]. Call the office if you have: * increasing pain not responsive to pain medication * fever of 101F or higher * vomiting * unusual or increasing bleeding or drainage from wounds * increasing redness or swelling at wound sites Also, you have been referred to a primary medical doctor; call for an appointment within 1-2 weeks to establish primary care. Referrals: Roman Luz MD [Staff Physician] - (Call for an appointment within a couple of weeks.) Disposition: HOME - Home Medications Comprehensive Discharge Medication List: Ambulatory Orders Acetaminophen [Tylenol .Regular Strength -] 650 mg PO Q6H tablet 04/01/18 Ibuprofen [Motrin -] 600 mg PO Q6H tablet 04/01/18
[2018-04-01 12:10] VITALS: BP 123/63; PULSE 64; TEMP 97.9
--- NOTE | 2018-04-02 13:36 | PATH ---
Surgical Pathology Report Patient Name: YOGESH FLOYD [facility]. Rec. #: [id number] /Age/Gender: 1990 (Age: 27) / M Account: [id number] Location: [address] [place] [address]/[facility] Taken: 03/31/2018 Received: 04/01/2018 Reported: 04/02/2018 Physicians: Siddharth Lynn M.D. Specimen(s) Received GALLBLADDER Clinical History Biliary colic, acute cholecystitis Final Diagnosis GALLBLADDER, REMOVAL: MILD ACUTE SUPERIMPOSED ON CHRONIC CHOLECYSTITIS. CHOLESTEROLOSIS. CHOLELITHIASIS. Electronically Signed Tanna Marie M.D. Gross Description Received in formalin, labeled "gallbladder," is a 10.0 x 3.0 x 2.6 cm. gallbladder with a 0.2 cm. in length portion of cystic duct attached. The outer surface is dyson green and varies from smooth to shaggy. The lumen contains green, tenacious bile as well as a 3.0 cm in greatest dimension brown, ovoid cholelith. The mucosa is green and velvety with a gold cholesterol stippling. The wall of the gallbladder measures 0.1 cm. in thickness. Heavy Machinery Assembler sections are submitted in one cassette. 04/01/2018 saudi04/01/2018
== END 2018-04-01 14:24 | disposition home or self-care (01) | DRG 419 ==
LOC: JER 02:55 → JERBED 14:26 → J6S 21:28
PROVIDERS: ADMIT Surgery; ATTEND Surgery
PROC: 0FT44ZZ Resection of Gallbladder, Percutaneous Endoscopic Approach (ICD-10-PCS; principal; 2018-03-31 14:00)
DX: K80.00 Calculus of gallbladder with acute cholecystitis without obstruction (principal); Z87.891 Personal history of nicotine dependence; K21.9 Gastro-esophageal reflux disease without esophagitis; E66.9 Obesity, unspecified; Z68.35 Body mass index [BMI] 35.0-35.9, adult
CPT/HCPCS: 36415; 74181-TC; 76705-TC; 80053; 81003; 83690; 85025; 85610; 86850; 86900; 86901; 88304-TC; 94760; 99284-25; J7030

== ENCOUNTER 2023-09-07 04:27 | Day surgery (SDC) | payer BC, OTHER ==
[2023-09-04 13:15] VITALS: BMI 40.8
[2023-09-07] MEDS ORDERED: LIDOCAINE HCL 1%, 10 MG/ML (20ML VIAL) ONE (07:15)
[2023-09-07] MEDS ORDERED: BUPIVACAINE HCL/PF 0.5% (5MG/ML) 10 ML VIAL ONE (07:16)
[2023-09-07] MEDS ORDERED: BACITRACIN ZINC 15 GM TUBE TOPICAL OINTMENT ONE (07:16)
[2023-09-07] MEDS ORDERED: PROPOFOL 40 ML ONE ×2 (07:41→08:25)
[2023-09-07] MEDS ORDERED: SUCCINYLCHOLINE CHLORIDE 200 MG/10 ML SYRINGE ONE (07:41)
[2023-09-07] MEDS ORDERED: FENTANYL CITRATE/PF 50 MCG/ML VIAL ONE ×3 (07:41→08:09)
[2023-09-07] MEDS ORDERED: MIDAZOLAM HCL 2 MG/2 ML SINGLE DOSE VIAL ONE (07:41)
[2023-09-07] MEDS ORDERED: ACETAMINOPHEN INJECTION 100 ML IVPB ONE (07:46)
[2023-09-07] MEDS ORDERED: ceFAZolin SODIUM 1 GM VIAL IVPB ONE (08:00)
[2023-09-07] MEDS ORDERED: LIDOCAINE 1% P/F 10 MG/ML VIAL INF ONE (08:05)
[2023-09-07] MEDS ORDERED: BUPIVACAINE HCL/PF 0.5% (5MG/ML) 10 ML VIAL IJ ONE (08:05)
[2023-09-07] MEDS ORDERED: BACITRACIN ZINC 15 GM TUBE TOPICAL OINTMENT TP ONE (08:34)
[2023-09-07] MEDS ORDERED: oxyCODONE HCL 5 MG TABLET PO PRN (08:52)
[2023-09-07] MEDS ORDERED: ONDANSETRON 4 MG/2 ML VIAL IVPUSH PRN (08:52)
[2023-09-07 10:15] VITALS: BP 146/50; PULSE 82; RESP 18; TEMP 97.9
== END 2023-09-07 11:10 | disposition home or self-care (01) ==
LOC: JASU-SURG 04:27
PROVIDERS: ATTEND Urology
PROC: 0VTTXZZ Resection of Prepuce, External Approach (ICD-10-PCS; principal; 2023-09-07 08:00)
DX: N47.1 Phimosis (principal)
CPT/HCPCS: 88304-TC; 94760